=== PATIENT | female | born 1945 | race Caucasian/White ===

== ENCOUNTER 2016-08-15 05:32 | Inpatient (IN) | payer OTHER, BC ==
[2016-08-04 11:26] LABS: HEMATOCRIT 37.3 % (37.0-47.0); HEMOGLOBIN 12.2 gm/dL (12.0-15.0); MCHC 32.7 g/dL (28.0-37.0); MCV 88.9 fL (80.0-100.0); RBC 4.2 mil/uL (4.20-5.00); RDW 13.3 % (10.5-14.5)
[2016-08-04 11:36] LABS: ALBUMIN 3.6 g/dL (3.4-5.0); CALCIUM 8.6 mg/dL (8.5-10.1); CREATININE 1.8 mg/dL (0.6-1.0); POTASSIUM 4.4 mmol/L (3.5-5.1)
[2016-08-04 11:38] LABS: PROTIME 10.5 Seconds (9.3-11.4)
[2016-08-04 12:22] LABS: URINE BLOOD NEGATIVE (Negative); URINE COLOR YELLOW; URINE GLUCOSE-RANDOM* NEGATIVE (Negative); URINE KETONES TRACE (Negative); URINE LEUKOCYTES-REFLEX 1+ (Negative); URINE PROTEIN (DIPSTICK) 1+ (Negative); URINE SPECIFIC GRAVITY >= 1.030 (1.003-1.035); URINE UROBILINOGEN 0.2 E.U./dl (0.2-1.0)
[2016-08-04 12:24] LABS: ICTOTEST (BILI CONFIRMATORY) Negative (Negative); URINE BILIRUBIN NEGATIVE (Negative)
[2016-08-04 13:15] LABS: HYALINE CASTS >10 Many /LPF (None Seen); SQUAMOUS 4-10 Moderate /LPF (0-3); URINE WBC-REFLEX 6-15 Few /HPF (0-5)
[2016-08-04 13:16] LABS: AMORPHOUS URATES Moderate /LPF (None Seen); URINE RBC None Seen /HPF (0-2)
[2016-08-15] VITALS (10 sets, daily range): BP systolic 10–123; BP diastolic 47–69
[~2016-08-15] VITALS: Ht 170.2 cm; Wt 117.5 kg
--- NOTE | ~2016-08-15 | O ---
[facility] [place] [address] OPERATIVE REPORT Name: MADDIE MALDONADO Room #: 534-P ADM IN M.R.#: [id number] Admission: 08/15/16 Attend Phys: Cole Pepe MD Discharge: Date of : 45 Report #: [id number] THIS REPORT FOR: //name// CC: Cole Ruzi Box DATE OF SERVICE: 08/15/2016 PREOPERATIVE DIAGNOSIS: End-stage degenerative arthritis, right knee. POSTOPERATIVE DIAGNOSIS: End-stage degenerative arthritis, right knee. PROCEDURE: Right total knee arthroplasty. SURGEON: Cole Pepe MD INDICATIONS: This still reasonably active and independent 71-year-old female presents with progressive right knee pain. Clinical evaluation and x-rays confirm rather significant 3-compartment degenerative arthritis. We discussed treatment options and elected to go ahead with right total knee arthroplasty. DESCRIPTION OF PROCEDURE: The patient was taken to the operating room where she was placed under general anesthesia. Prophylactic intravenous antibiotics were administered. The right knee and leg were meticulously prepped and draped and a thigh tourniquet was applied and inflated to 300 mmHg. An anterior longitudinal skin incision was made and carried through the medial retinaculum. The patella was reflected laterally. Moderate degenerative change in all 3 compartments was noted. The DePEPS PFC knee system was utilized. Intramedullary guides were used and the femur was cut in 5 degrees of valgus and the tibia cut perpendicular to the long axis of bone. Sufficient bone was resected to correct the mild preoperative flexion contracture. The femur seemed best suited for a size 4 femoral component. The tibia was also best suited for a size 4 tibial component. A 10-mm polyethylene insert resulted in good alignment and stability with satisfactory range of motion including full extension and flexion beyond 130 degrees. The patellar surface was resected using a cutting guide and a 38 mm patellar button fit nicely. Appropriate anchor holes were created. A trial reduction was performed and the patella tracked nicely without any evidence of subluxation. The trial components were removed. The surfaces of the bone were thoroughly irrigated and dried. The intramedullary canal was blocked with bone block on both the femoral and tibial sides. Methyl methacrylate cement was mixed and injected into the porous surface of the proximal tibia. The DePuy PFC size 4 tibial component was then impacted into position. It seated nicely and appeared to be secure. Excess cement was removed from around its margin. The 10 mm polyethylene insert was snapped into place. It seated nicely and appeared to be secure. The size 4 right femoral component was impacted on the distal femur. Some cement was used distally at the anchor holes as the bone was [address] [address] OPERATIVE REPORT Name: MADDIE MALDONADO Room #: 534-P [facility] IN M.R.#: [id number] Admission: 08/15/16 Attend Phys: Cole Pepe MD Discharge: Date of : 45 Report #: [id number] somewhat osteoporotic. The fit appeared to be good and the femoral component appeared to be stable. It seated nicely. The 38 mm patellar button was cemented into place using appropriate anchor holes and cement. The patella was secured with a patellar clamp until the cement had hardened. All excess cement was removed from around its margin. Once the cement was firm, range of motion, alignment, and stability was once again assessed and felt to be satisfactory. A single Hemovac was left in the wound exiting through a separate stab incision. The tourniquet was then deflated after a total tourniquet time of 37 minutes. Good hemostasis was confirmed. The fascia was closed with multiple #1 Vicryl sutures. The subcutaneous tissues were closed with 0 Monocryl. The skin was closed with skin demetrius. A sterile dressing was applied. The patient was awakened and returned to recovery room in good condition. <ELECTRONICALLY SIGNED> By: Cole Pepe MD 08/17/16 1054 0900 0919 Cole Pepe MD /nt
--- NOTE | ~2016-08-15 | H ---
[facility] [place] [address] HISTORY AND PHYSICAL Name: MADDIE MALDONADO Room #: 534-P DIS IN M.R.#: [id number] Admission: 08/15/16 Attend Phys: Cole Pepe MD Discharge: 08/19/16 Date of : 45 Report #: [id number] THIS REPORT FOR: //name// For History and Physical, please see office documentation/handwritten note in the patient's medical record. <ELECTRONICALLY SIGNED> By: Cole Pepe MD 08/20/16 1643 0000 1132 Cole Pepe MD /
--- NOTE | ~2016-08-15 | EKG ---
[address] [address] ELECTROCARDIOGRAM REPORT Name: MADDIE MALDONADO Room #: PRE IN [facility]#: [id number] Admission: Attend Phys: Cole Pepe MD Discharge: Date of : 45 Report #: [id number] THIS REPORT FOR: //name// [facility] Test Date: 2016-08-04 Test Time: 11:20:21 Pat Name: MADDIE MALDONADO Department: Room: Gender: F Front Desk Worker: julien : 1945 Requested By: Cole Pepe Order Number: [id number] MD: Alejandro Gerard Measurements Intervals [place] Rate: 67 P: 6 OR: 196 QRS: -53 QRSD: 104 T: 29 QT: 422 QTc: 446 Interpretive Statements Sinus rhythm Abnormal R-wave progression, late transition Inferior infarct, old No previous ECG available for comparison Electronically Signed On 08-04-2016 14:34:08 CDT by Alejandro Gerard [email or web address] <ELECTRONICALLY SIGNED> By: Alejandro Gerard MD 08/04/16 1434 1120 19 Alejandro Gerard MD /FRANKLYN
--- NOTE | ~2016-08-15 | D ---
[facility] [place] [address] DISCHARGE SUMMARY Name: MADDIE MALDONADO Abhishek Room #: 534-P [facility] IN M.R.#: [id number] Admission: 08/15/16 Attend Phys: Cole Pepe MD Discharge: 08/19/16 Date of : 45 Report #: [id number] THIS REPORT FOR: //name// CC: Cole Hummel DATE OF SERVICE: 08/19/2016 DATE OF ADMISSION: 08/15/2016. DATE OF DISCHARGE: 08/19/2016. FINAL DIAGNOSIS: End-stage degenerative arthritis, right knee. OPERATIONS AND PROCEDURES: Right total knee arthroplasty. HISTORY OF PRESENT ILLNESS: This 71-year-old female presents with progressive bilateral knee pain, worse on the right than on the left. She has had moderate symptoms for some time and has tried conservative measures without lasting benefit. She and her understand well and have elected to go ahead with right total knee arthroplasty, hoping to see some symptomatic benefit. HOSPITAL COURSE: The patient was admitted and taken to the operating room on 08/15 and a right total knee arthroplasty was performed. She tolerated this well. Postoperatively, she did have problems with weakness and pain making her rehab very slow and limited. She was able to manage her usual medications. She was started on Xarelto as anticoagulation. She was advanced from IV analgesics to oral analgesics. She resumed a regular diet. She seems to be making satisfactory progress, but does not seem sufficiently safe and strong enough to go home with only her for assistance. She notes she does have stairs at home and has not yet mastered stairs here in our therapy program despite one additional day with therapy. Given this, we have discussed other options and I have elected to proceed with brief rehab stay. They have chosen [facility] to receive 4-7 days organized-directed therapy, working hard on range of motion and strengthening, such that she can resume independent living in her own home with help from her at that point. She is ready for discharge from the hospital on 08/19. She will continue on Xarelto 10 mg daily and hydrocodone 5 mg q.4h. p.r.n. for pain. She will continue with her other routine medications as directed by her hospitalist and primary care physicians. I have asked them to call me should there be any problems or questions. We will [address] [address] DISCHARGE SUMMARY Name: ERICARENETTAMADDIE R Room #: 534-P [facility] IN M.R.#: [id number] Admission: 08/15/16 Attend Phys: Cole Pepe MD Discharge: 08/19/16 Date of : 45 Report #: [id number] plan to either visit by phone or here in the office next week, probably on 08/22 and then probably see her the following week for followup and suture removal. <ELECTRONICALLY SIGNED> By: Cole Pepe MD 08/20/16 1643 1540 0138 Cole Pepe MD /alex
[~2016-08-15 05:32] MED LIST: AMLODIPINE-BEN1 EAC5 PO; ATORVASTATIN CA40 MG PO; CENTRUM SILVER1 EAC4 PO; LEXAPRO 10 MG T10 MG PO; METFORMIN HCL500 MG PO; MOBIC15 MG PO; ONGLYZA5 MG PO; VITAMIN D250000 UNIT PO; ZYRTEC10 M5 PO
[2016-08-16 03:00] LABS: HEMATOCRIT 29.6 % (37.0-47.0); HEMOGLOBIN 9.4 gm/dL (12.0-15.0); MCH 28.8 pg (26.0-34.0); MCHC 31.9 g/dL (28.0-37.0); MCV 90.3 fL (80.0-100.0); RBC 3.28 mil/uL (4.20-5.00); RDW 13.6 % (10.5-14.5)
[2016-08-16 03:07] LABS: CALCIUM 7.6 mg/dL (8.5-10.1); CREATININE 1.7 mg/dL (0.6-1.0); POTASSIUM 5.1 mmol/L (3.5-5.1)
[2016-08-16 04:12] VITALS: BP 105/51
[2016-08-16 04:48] VITALS: BP 138/76
[2016-08-16 07:58] VITALS: BP 105/52
[2016-08-16 17:14] VITALS: BP 104/53
[2016-08-17 06:35] LABS: HEMATOCRIT 27.5 % (37.0-47.0); HEMOGLOBIN 8.9 gm/dL (12.0-15.0); MCH 29.4 pg (26.0-34.0); MCHC 32.5 g/dL (28.0-37.0); MCV 90.5 fL (80.0-100.0); RBC 3.04 mil/uL (4.20-5.00); RDW 13.5 % (10.5-14.5); WBC 11.3 thou/uL (4.0-11.0)
[2016-08-17 07:32] VITALS: BP 104/48
[2016-08-17 16:40] VITALS: BP 148/57
[2016-08-17 20:00] VITALS: BP 109/52
[2016-08-18] VITALS: BP 131/56
[2016-08-18 04:00] VITALS: BP 128/52
[2016-08-18 04:08] LABS: HEMATOCRIT 26.4 % (37.0-47.0); HEMOGLOBIN 8.6 gm/dL (12.0-15.0); MCH 29.6 pg (26.0-34.0); MCHC 32.5 g/dL (28.0-37.0); MCV 90.9 fL (80.0-100.0); RBC 2.9 mil/uL (4.20-5.00); RDW 13.7 % (10.5-14.5); WBC 8.9 thou/uL (4.0-11.0)
[2016-08-18 07:39] VITALS: BP 146/59
[2016-08-18 16:31] VITALS: BP 83/32
[2016-08-18 19:30] VITALS: BP 130/59
[2016-08-19 03:30] VITALS: BP 127/56
[2016-08-19 07:10] VITALS: BP 137/74
== END 2016-08-19 15:05 | DRG 470 ==
LOC: 5S 05:32 → TBA 05:32 → PRE 10:36 → 5S 11:43 → PRE 13:09 → 5S 08-19 15:05
PROVIDERS: Hospitalist; Orthopaedic Surgery
PROC: 0SRC0J9 Replacement of Right Knee Joint with Synthetic Substitute, Cemented, Open Approach (ICD-10-PCS; principal; 2016-08-15)
DX: M17.11 Unilateral primary osteoarthritis, right knee (principal); J96.10 Chronic respiratory failure, unspecified whether with hypoxia or hypercapnia; E11.9 Type 2 diabetes mellitus without complications; I10 Essential (primary) hypertension; Z90.49 Acquired absence of other specified parts of digestive tract
CPT/HCPCS: 10086; 50010; 50101; 50415; 50954; 51130; 51225; 51412; 51771; 53000; 53364; 56525; 62110; 62900; 64037; 64042; 64043; 70005

== ENCOUNTER → 2017-06-01 | Outpatient (CLI) | payer OTHER, BC ==
--- NOTE | ~2017-06-01 | 2DMMODE ---
[facility] [address] [place] [address] 2 D/M-MODE ECHOCARDIOGRAM Name: ERICAMADDIE HUMBERTO Room #: REG CL [facility]#: [id number] Admission: 06/01/17 Attend Phys: Joseph Hummel MD Discharge: Date of : 45 Date of Service: 06/01/17 1213 Report #: [id number] THIS REPORT FOR: //name// APPROVED REPORT Study performed: 06/01/2017 10:41:41 EXAM: Comprehensive 2D, Doppler, and color-flow Echocardiogram Patient Location: Out-Patient Room #: Echo lab Status: routine BSA: 2.28 HR: 65 bpm BP: 145/93 mmHg Other Information Study Quality: Adequate Indications Dyspnea Hypertension/HDD 2D Dimensions RVDd: 42.78 mm LVEF(%): 53.58 (>50%) IVSd: 11.73 (7-11mm) LVOT Diam: 18.32 (18-24mm) LVDd: 50.94 mm PWd: 10.65 (7-11mm) Ascending Ao: 34.75 (22-36mm) LVDs: 36.78 (25-40mm) Aortic Root: 30.59 mm IVC: 14.00 mm Clemente's LVEF: 53.58 % Volumes Left Atrial Volume (Systole) Single Plane 4CH: 62.74 mL Single Plane 2CH: 89.26 mL LA ESV Index: 35.00 mL/m2 Aortic Valve AoV Peak Morgan.: 1.28 m/s AO Peak Gr.: 6.57 mmHg LVOT Max P.52 mmHg LVOT Max V: 1.17 m/s DALE Vmax: 2.41 cm2 Mitral Valve E/A Ratio: 0.7 MV Decel. Time: 408.80 ms [facility] [place] [address] 2 D/M-MODE ECHOCARDIOGRAM Name: MADDIE MALDONADO HUMBERTO Room #: REG [facility].#: [id number] Admission: 06/01/17 Attend Phys: Joseph Hummel MD Discharge: Date of : 45 Date of Service: 06/01/17 1213 Report #: [id number] MV E Max Morgan.: 0.99 m/s MV A Morgan.: 1.37 m/s MV PHT: 118.55 ms IVRT: 110.73 ms Pulmonary Valve PV Peak Morgan.: 0.88 m/s PV Peak Gr.: 3.07 mmHg Pulmonary Vein P Vein S: 0.55 m/s P Vein A: 0.24 m/s P Vein D: 0.30 m/s P Vein A Dur.: 110.7 msec P Vein S/D Ratio: 1.83 Left Ventricle The left ventricle is normal size. Mild concentric left ventricular hypertrophy. The left ventricular systolic function is normal. The left ventricular ejection fraction is within the normal range. LVEF is 55-60%. Grade I - abnormal relaxation pattern. Right Ventricle Right ventricle is dilated. The right ventricular systolic function is normal. Atria Left atrium is mildly dilated. Right atrium is mildly dilated. Aortic Valve The aortic valve is normal in structure. No aortic regurgitation is present. There is no aortic valvular stenosis. Mitral Valve The mitral valve is normal in structure. Mild mitral regurgitation. No evidence of mitral valve stenosis. Tricuspid Valve The tricuspid valve is normal in structure. There is no tricuspid valve regurgitation noted. Pulmonic Valve The pulmonary valve is normal in structure. There is no pulmonic valvular regurgitation. Great Vessels The aortic root is normal in size. IVC is normal in size and collapses >50% with inspiration. [facility] [address] [place] [place] [address] 2 D/M-MODE ECHOCARDIOGRAM Name: LATANYA MALDONADOADEBAYO PAUL Room #: REG CL [facility]#: [id number] Admission: 06/01/17 Attend Phys: Joseph Hummel MD Discharge: Date of : 45 Date of Service: 06/01/17 1213 Report #: [id number] Pericardium There is no pericardial effusion. <Conclusion> The left ventricle is normal size. Mild concentric left ventricular hypertrophy. The left ventricular systolic function is normal. Grade I - abnormal relaxation pattern. Left atrium is mildly dilated. Right ventricle is dilated. Right atrium is mildly dilated. The aortic valve is normal in structure. Mild mitral regurgitation. There is no pericardial effusion. <ELECTRONICALLY SIGNED> By: Dakota Rose MD 06/01/17 1213 12 12 Dakota Rose MD /INF
== END ==
LOC: CV 10:32
DX: I34.0 Nonrheumatic mitral (valve) insufficiency (principal); I10 Essential (primary) hypertension; J96.10 Chronic respiratory failure, unspecified whether with hypoxia or hypercapnia; E11.9 Type 2 diabetes mellitus without complications